=== PATIENT | female | born 1960 | race Caucasian/White ===

== ENCOUNTER 2018-06-10 08:50 | Day surgery (SDC) | payer OTHER ==
[2018-06-10] MEDS ORDERED: PROPOFOL 60 ML (09:23)
[2018-06-10] MEDS ORDERED: LIDOCAINE 2% (SDV) 5 ML INJ (09:23)
[2018-06-10] MEDS ORDERED: hydrALAzine 20 MG INJ IV (09:30)
[2018-06-10] MEDS ORDERED: FENTAnyl 50 MCG/ML VIAL IV (09:30)
[2018-06-10] MEDS ORDERED: EPHEDrine SULFATE 50 MG/5 ML SYG IV (09:30)
[2018-06-10] MEDS ORDERED: ONDANSETRON 4 MG INJ IV (09:30)
[2018-06-10] MEDS ORDERED: LABETALOL HCL 20MG INJ IV (09:30)
== END 2018-06-10 13:31 | disposition home or self-care (01) ==
LOC: GIL 08:50
DX: R19.4 Change in bowel habit (principal); K64.8 Other hemorrhoids; K21.9 Gastro-esophageal reflux disease without esophagitis; K29.60 Other gastritis without bleeding
CPT/HCPCS: 43239; 88305